=== PATIENT | female | born 1940 ===

== ENCOUNTER 2021-06-22 17:33 | Emergency (ER) | payer MEDICARE ==
[2021-06-22 19:43] VITALS: BP 150/56
== END 2021-06-22 21:47 | disposition left against medical advice (07) ==
LOC: ED 17:33
DX: M54.9 Dorsalgia, unspecified (principal); Z53.21 Procedure and treatment not carried out due to patient leaving prior to being seen by health care provider

== ENCOUNTER 2021-09-13 17:39 | Emergency (ER) | payer MEDICARE ==
[2021-09-13 19:31] VITALS: BP 150/69
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
== END 2021-09-14 12:18 | disposition home or self-care (01) ==
LOC: ED 17:39
DX: S80.12XA Contusion of left lower leg, initial encounter (principal); S80.11XA Contusion of right lower leg, initial encounter; I10 Essential (primary) hypertension; F17.200 Nicotine dependence, unspecified, uncomplicated; X58.XXXA Exposure to other specified factors, initial encounter; Y93.89 Activity, other specified; Y92.89 Other specified places as the place of occurrence of the external cause; Y99.8 Other external cause status
CPT/HCPCS: 99283